=== PATIENT | male | born 1935 | race Caucasian/White ===

== ENCOUNTER → 2017-01-07 | Outpatient (CLI) | payer OTHER ==
[~2017-01-07] MED LIST: APIX5TAB PO; FLUTICASONE NAS; FUROSEMIDE 20 MG/2 ML ONE; LEVO125T5 PO; METO25TA91 PO; OXYC-302 PO; TAMS0.4C2 PO
== END | disposition home or self-care (01) ==
LOC: PETCFH 13:20
PROVIDERS: ATTEND Urology
DX: C67.9 Malignant neoplasm of bladder, unspecified (principal); C66.2 Malignant neoplasm of left ureter; N28.1 Cyst of kidney, acquired; R31.0 Gross hematuria
CPT/HCPCS: 78708; A9562; J1940

== ENCOUNTER → 2017-02-04 | Outpatient (CLI) | payer OTHER ==
[~2017-02-04] MED LIST changes: -FUROSEMIDE 20 MG/2 ML ONE; +OMNIPAQUE 350 MG/ML, 100ML BOTTLE ONE
== END | disposition home or self-care (01) ==
LOC: CFH 08:30
PROVIDERS: ATTEND Urology
DX: C66.2 Malignant neoplasm of left ureter (principal); C67.9 Malignant neoplasm of bladder, unspecified; K76.0 Fatty (change of) liver, not elsewhere classified; N28.1 Cyst of kidney, acquired; Z90.5 Acquired absence of kidney
CPT/HCPCS: 74177; Q9967

== ENCOUNTER 2017-04-01 05:39 | Day surgery (SDC) | payer OTHER ==
[~2017-04-01] VITALS: Ht 185.4 cm; Wt 79.0 kg
[~2017-04-01 05:39] MED LIST changes: -OMNIPAQUE 350 MG/ML, 100ML BOTTLE ONE
[2017-04-01] MEDS ORDERED: LACTATED RINGERS 1,000 ML IV SCH (06:57)
[2017-04-01 06:58] VITALS: BP 120/73
[2017-04-01] MEDS ORDERED: OMEP-110 PO (07:07)
[2017-04-01] MEDS ORDERED: FLUT16SP NAS (07:07)
[2017-04-01] MEDS ORDERED: CIPROFLOXACIN/PMX 400MG/200ML 200 ML ONE (07:24)
[2017-04-01] MEDS ORDERED: PROPOFOL 10 MG/ML, 20ML ONE (07:25)
[2017-04-01] MEDS ORDERED: ONDANSETRON 2MG/ML, 2ML ONE (07:25)
[2017-04-01] MEDS ORDERED: FENTANYL PF 100 MCG/2ML ONE (07:41)
[2017-04-01] MEDS ORDERED: FENTANYL PF 100 MCG/2ML IV PRN (08:00)
[2017-04-01] MEDS ORDERED: ACETAMINOPHEN 325 MG TABLET PO PRN (08:00)
[2017-04-01] MEDS ORDERED: ONDANSETRON 2MG/ML, 2ML IVPush PRN (08:00)
[2017-04-01] MEDS ORDERED: OXYcodone 5 MG/5 ML ORAL.SOL UDC PO PRN (08:00)
[2017-04-01] MEDS ORDERED: HYDROmorphone 1 MG/ML, 1ML IV PRN (08:00)
[2017-04-01] MEDS ORDERED: OXYcodone/APAP 5/325MG TABLET PO PRN (08:30)
== END 2017-04-01 10:35 | disposition home or self-care (01) ==
LOC: OUT 05:39
PROVIDERS: ATTEND Urology
DX: C67.9 Malignant neoplasm of bladder, unspecified (principal); E03.9 Hypothyroidism, unspecified; E11.9 Type 2 diabetes mellitus without complications; N40.0 Benign prostatic hyperplasia without lower urinary tract symptoms; M19.90 Unspecified osteoarthritis, unspecified site; Z87.891 Personal history of nicotine dependence; Z72.89 Other problems related to lifestyle; Z90.49 Acquired absence of other specified parts of digestive tract; Z98.890 Other specified postprocedural states; Z83.3 Family history of diabetes mellitus
CPT/HCPCS: 52234; 81001; 87077; 87086; 88307; 93005; J0744; J2405; J2704; J3010; J7120; 87186

== ENCOUNTER 2017-08-13 05:52 | Day surgery (SDC) | payer OTHER ==
[~2017-08-13] VITALS: Ht 185.4 cm; Wt 76.3 kg
[~2017-08-13 05:52] MED LIST changes: +FLUT16SP NAS; +OMEP-110 PO
[2017-08-13 06:36] VITALS: BP 136/77
[2017-08-13] MEDS ORDERED: SODIUM CHLORIDE 0.9% 1,000 ML IV SCH (06:38)
[2017-08-13] MEDS ORDERED: MULT-6 PO (06:58)
[2017-08-13] MEDS ORDERED: LIDOCAINE 1%, 20ML ONE (07:40)
[2017-08-13] MEDS ORDERED: FLUMAZENIL 0.1 MG/1 ML, 5ML ONE (07:58)
[2017-08-13] MEDS ORDERED: MIDAZOLAM 1 MG/ML, 5ML ONE ×2 (07:58)
[2017-08-13] MEDS ORDERED: NALOXONE 1 MG/ML, 2ML ONE (07:58)
[2017-08-13] MEDS ORDERED: FENTANYL PF 100 MCG/2ML ONE (07:58)
[2017-08-13] MEDS ORDERED: VISIPAQUE 270 MG/ML, 50ML BOTTLE ONE (08:00)
[2017-08-13] MEDS ORDERED: CIPROFLOXACIN/PMX 400MG/200ML 200 ML IVPB ONE (08:30)
== END 2017-08-13 10:35 ==
LOC: OUT 05:52
PROVIDERS: ATTEND Urology
DX: C65.2 Malignant neoplasm of left renal pelvis (principal); C67.9 Malignant neoplasm of bladder, unspecified; Z90.5 Acquired absence of kidney; Z93.6 Other artificial openings of urinary tract status
CPT/HCPCS: 50693; 50694; 74176; 76942; 99156; 99157; C1751; C1769; C1894; C2625; J2250; J3010; J3490; Q9966; J2310

== ENCOUNTER 2017-10-29 13:53 | Day surgery (SDC) | payer OTHER ==
[~2017-10-29] VITALS: Ht 185.4 cm; Wt 79.3 kg
[~2017-10-29 13:53] MED LIST changes: +MULT-6 PO
[2017-10-29] MEDS ORDERED: LACTATED RINGERS 1,000 ML IV SCH (14:32)
[2017-10-29] MEDS ORDERED: DONE5TAB14 PO (14:37)
[2017-10-29] MEDS ORDERED: FISH OIL PO (14:37)
[2017-10-29] MEDS ORDERED: VITAMIN B 12 PO (14:37)
[2017-10-29 14:46] VITALS: BP 91/62
[2017-10-29] MEDS ORDERED: LIDOCAINE 1%, 2ML SQ PRN (15:00)
[2017-10-29] MEDS ORDERED: ASPI-191 PO (15:03)
[2017-10-29] MEDS ORDERED: FENTANYL PF 100 MCG/2ML ONE ×2 (15:42)
[2017-10-29] MEDS ORDERED: MIDAZOLAM 1 MG/ML, 2ML ONE (15:42)
[2017-10-29] MEDS ORDERED: PROPOFOL 10 MG/ML, 20ML ONE (16:20)
[2017-10-29] MEDS ORDERED: EPHEDRINE 50 MG/ML, 1ML ONE (16:20)
[2017-10-29] MEDS ORDERED: ONDANSETRON 2MG/ML, 2ML ONE (16:20)
[2017-10-29] MEDS ORDERED: DEXAMETHASONE 4 MG/ML, 1ML ONE (16:20)
[2017-10-29] MEDS ORDERED: MITOMYCIN 40 MG, WATER FOR INJECTION,STERILE 40 ML in SYRINGE 1 EA INTVESIC ONE (16:30)
[2017-10-29] MEDS ORDERED: CIPROFLOXACIN/PMX 400MG/200ML 200 ML ONE (16:40)
[2017-10-29] MEDS ORDERED: ONDANSETRON 2MG/ML, 2ML IV PRN (18:00)
[2017-10-29] MEDS ORDERED: OXYcodone/APAP 5/325MG TABLET PO PRN (18:00)
[2017-10-29] MEDS ORDERED: ONDANSETRON 2MG/ML, 2ML IVPush PRN (18:30)
[2017-10-29] MEDS ORDERED: EPHEDRINE 50 MG/ML, 1ML IVPush PRN (18:30)
[2017-10-29] MEDS ORDERED: HYDROcodone/APAP 7.5-325MG/15ML UDC PO PRN (18:30)
[2017-10-29] MEDS ORDERED: LABETALOL 5MG/ML, 20ML IV PRN (18:30)
[2017-10-29] MEDS ORDERED: ACETAMINOPHEN 325 MG TABLET PO PRN (18:30)
[2017-10-29] MEDS ORDERED: HYDROmorphone 1 MG/ML, 1ML IV PRN (18:30)
[2017-10-29] MEDS ORDERED: PROMETHAZINE 25 MG/ML, 1ML IV PRN (18:30)
[2017-10-29] MEDS ORDERED: hydrALAzine 20 MG/ML, 1ML IV PRN (18:30)
[2017-10-29] MEDS ORDERED: OXYcodone 5 MG/5 ML ORAL.SOL UDC PO PRN (18:30)
[2017-10-29] MEDS ORDERED: ALBUTEROL SULFATE 2.5 MG/3 ML NPPB PRN (18:30)
[2017-10-29] MEDS ORDERED: METOPROLOL 1 MG/ML, 5ML IV PRN (18:30)
[2017-10-29] MEDS ORDERED: FENTANYL PF 100 MCG/2ML IV PRN (18:30)
[2017-10-29] MEDS ORDERED: ACETAMINOPHEN 650 MG/20.3 ML UDC ONE (18:44)
[2017-10-29 19:45] VITALS: BP 154/77
== END 2017-10-29 22:10 | disposition home or self-care (01) ==
LOC: OR 13:53 → 4NOR 19:30 → OR 22:10
PROVIDERS: ATTEND Urology
DX: C67.9 Malignant neoplasm of bladder, unspecified (principal); I48.91 Unspecified atrial fibrillation; K21.9 Gastro-esophageal reflux disease without esophagitis; Z90.5 Acquired absence of kidney; Z85.51 Personal history of malignant neoplasm of bladder; Z79.899 Other long term (current) drug therapy; Z72.89 Other problems related to lifestyle; Z87.891 Personal history of nicotine dependence; Z90.49 Acquired absence of other specified parts of digestive tract; E11.9 Type 2 diabetes mellitus without complications; M19.90 Unspecified osteoarthritis, unspecified site; N40.1 Benign prostatic hyperplasia with lower urinary tract symptoms; N13.8 Other obstructive and reflux uropathy
CPT/HCPCS: 51720; 52235; 88307; 93005; J0744; J1100; J2250; J2405; J2704; J3010

== ENCOUNTER 2017-11-25 06:16 | Day surgery (SDC) | payer OTHER ==
[~2017-11-25] VITALS: Ht 182.9 cm; Wt 74.8 kg
[~2017-11-25 06:16] MED LIST changes: +ASPI-191 PO; +DONE5TAB14 PO; +ERGO500017 PO; +FISH OIL PO; +LEVO150T PO; +VITAMIN B 12 PO
[2017-11-25] MEDS ORDERED: CIPROFLOXACIN/PMX 400MG/200ML 200 ML IV ONE (07:00)
[2017-11-25 07:04] VITALS: BP 136/84
[2017-11-25] MEDS ORDERED: SODIUM CHLORIDE 0.9% 1,000 ML IV SCH (07:41)
[2017-11-25] MEDS ORDERED: LIDOCAINE 1%, 20ML ONE ×2 (08:03→08:08)
[2017-11-25] MEDS ORDERED: FENTANYL PF 100 MCG/2ML ONE (08:14)
[2017-11-25] MEDS ORDERED: MIDAZOLAM 1 MG/ML, 2ML ONE ×2 (08:14)
[2017-11-25] MEDS ORDERED: VISIPAQUE 270 MG/ML, 50ML BOTTLE ONE (09:57)
== END 2017-11-25 11:30 ==
LOC: OUT 06:16
PROVIDERS: ATTEND Urology
DX: N13.1 Hydronephrosis with ureteral stricture, not elsewhere classified (principal); Z98.890 Other specified postprocedural states; Z87.891 Personal history of nicotine dependence; Z85.51 Personal history of malignant neoplasm of bladder
CPT/HCPCS: 50693; 99156; 99157; C1769; C2625; J0744; J2250; J3010; J3490; J7030; Q9966

== ENCOUNTER 2017-12-14 06:01 | Inpatient (IN) | payer OTHER ==
[~2017-12-14] VITALS: Ht 182.9 cm; Wt 79.5 kg
[2017-12-14 06:34] LABS: BASOPHILS # (AUTO) 0.02 x10^3/uL (0-0.1); BASOPHILS % (AUTO) 0 % (0-1); EOSINOPHILS # (AUTO) 0.06 x10^3/uL (0-0.4); EOSINOPHILS % (AUTO) 0 % (1-7); LYMPHOCYTES # (AUTO) 1.67 x10^3/uL (1-3.4); LYMPHOCYTES % (AUTO) 11 % (22-44); MD NO; MEAN CORPUSCULAR HEMOGLOBIN 33.1 pg (27.5-34.5); MEAN CORPUSCULAR VOLUME 97.4 fL (81-97); MEAN PLATELET VOLUME 6.7 fL (7.4-10.4); MONOCYTES # (AUTO) 1.12 x10^3/uL (0.2-0.8); MONOCYTES % (AUTO) 7 % (2-9); NEUTROPHILS # (AUTO) 12.46 x10^3/uL (1.8-6.8); NEUTROPHILS % (AUTO) 81 % (42-75); PLATELET COUNT 302 x10^3/uL (130-400); RED BLOOD COUNT 3.82 x10^6/uL (4.38-5.82); RED CELL DISTRIBUTION WIDTH 13.8 % (9.4-14.8)
[2017-12-14 06:42] LABS: ALANINE AMINOTRANSFERASE 15 U/L (12-78); ALBUMIN 3.1 g/dL (3.4-5.0); ANION GAP 10 mmol/L (5-15); CALCIUM 8.3 mg/dL (8.5-10.1); CHLORIDE 105 mmol/L (98-107); CREATININE 6.51 mg/dL (0.7-1.3)
[2017-12-14] MEDS ORDERED: FENTANYL PF 100 MCG/2ML ONE (06:43)
[2017-12-14 06:44] LABS: ALKALINE PHOSPHATASE 54 U/L (45-117); BILIRUBIN,TOTAL 0.6 mg/dL (0.2-1.0); TOTAL PROTEIN 6.8 g/dL (6.4-8.2)
[2017-12-14] MEDS ORDERED: CEFTRIAXONE 1,000 MG ONE (07:02)
[2017-12-14] MEDS ORDERED: PHENYLEPHRINE 10 MG/ML ONE (07:03)
[2017-12-14] MEDS ORDERED: PROPOFOL 10 MG/ML, 20ML ONE ×2 (07:36)
[2017-12-14] MEDS ORDERED: NEOSTIGMINE 1 MG/ML, 10ML ONE (07:36)
[2017-12-14] MEDS ORDERED: LIDOCAINE 4%, 4 ML SYR/CANN TP ONE (07:36)
[2017-12-14] MEDS ORDERED: CEFAZOLIN 1,000 MG ONE (07:36)
[2017-12-14] MEDS ORDERED: SUCCINYLCHOLINE 20 MG/ML, 10ML ONE (07:36)
[2017-12-14] MEDS ORDERED: ONDANSETRON 2MG/ML, 2ML ONE (07:36)
[2017-12-14] MEDS ORDERED: DEXAMETHASONE 4 MG/ML, 1ML ONE (07:36)
[2017-12-14] MEDS ORDERED: GLYCOPYRROLATE 0.2MG/1ML, 5ML ONE (07:36)
[2017-12-14] MEDS ORDERED: ROCURONIUM 10 MG/ML,10ML ONE (07:36)
[2017-12-14] MEDS ORDERED: ACETAMINOPHEN 325 MG TABLET PO PRN (08:30)
[2017-12-14] MEDS ORDERED: OXYcodone/APAP 5/325MG TABLET PO PRN (08:30)
[2017-12-14] MEDS ORDERED: FENTANYL PF 100 MCG/2ML IV PRN (08:30)
[2017-12-14] MEDS ORDERED: OXYcodone 5 MG/5 ML ORAL.SOL UDC PO PRN (08:30)
[2017-12-14] MEDS ORDERED: ONDANSETRON 2MG/ML, 2ML IVPush PRN ×2 (08:30)
[2017-12-14] MEDS ORDERED: EPHEDRINE 50 MG/ML, 1ML IVPush PRN (08:30)
[2017-12-14] MEDS ORDERED: HYDROmorphone 1 MG/ML, 1ML IV PRN (08:30)
[2017-12-14] MEDS ORDERED: HYDROcodone/APAP 7.5-325MG/15ML UDC PO PRN (08:30)
[2017-12-14] MEDS: CYANOCOBALAMIN 1,000 MCG TABLET PO SCH (11:29)
[2017-12-14] MEDS: FLUTICASONE NASAL SPRAY 16GM NAS SCH (11:30)
[2017-12-14] MEDS: OMEPRAZOLE 20 MG CAPSULE.DR PO SCH (11:30)
[2017-12-14] MEDS: MULTIVITAMIN 1 TABLET PO SCH (11:30)
[2017-12-14] MEDS: POTASSIUM CHLORIDE 20 MEQ in D5%-0.45% NACL 1,000 ML IV SCH ×2 (11:30→20:55)
[2017-12-14] MEDS ORDERED: LEVOTHYROXINE 150 MCG TABLET PO SCH (11:30)
[2017-12-14 12:49] VITALS: BP 92/52
[2017-12-14 19:27] VITALS: BP 97/59
[2017-12-14] MEDS: DONEPEZIL 5 MG TABLET PO SCH (20:47)
[2017-12-14] MEDS: TAMSULOSIN 0.4 MG CAP.ER.24H PO SCH (20:47)
[2017-12-15 00:46] VITALS: BP 105/53
[2017-12-15 05:14] LABS: ANION GAP 9 mmol/L (5-15); CALCIUM 7.7 mg/dL (8.5-10.1); CHLORIDE 107 mmol/L (98-107); CREATININE 5.05 mg/dL (0.7-1.3)
[2017-12-15] MEDS ORDERED: LEVOTHYROXINE 25 MCG TABLET ONE ×2 (05:59→06:00)
[2017-12-15] MEDS ORDERED: LEVOTHYROXINE 125 MCG TABLET ONE (05:59)
[2017-12-15] MEDS: LEVOTHYROXINE 150 MCG TABLET PO SCH (06:00)
[2017-12-15] MEDS: POTASSIUM CHLORIDE 20 MEQ in D5%-0.45% NACL 1,000 ML IV SCH ×2 (06:06→16:42)
[2017-12-15 08:10] VITALS: BP 91/44
[2017-12-15] MEDS: CYANOCOBALAMIN 1,000 MCG TABLET PO SCH (08:17)
[2017-12-15] MEDS: OMEPRAZOLE 20 MG CAPSULE.DR PO SCH (08:17)
[2017-12-15] MEDS: MULTIVITAMIN 1 TABLET PO SCH (08:17)
[2017-12-15] MEDS: FLUTICASONE NASAL SPRAY 16GM NAS SCH (08:17)
[2017-12-15] MEDS: CEFTRIAXONE 1,000 MG in SODIUM CHLORIDE 0.9% 50 ML IV SCH (08:18)
[2017-12-15] MEDS ORDERED: CEFTRIAXONE PMX 1GM/50ML 50 ML IV SCH (08:30)
[2017-12-15 13:55] VITALS: BP 93/53
[2017-12-15 19:24] VITALS: BP 112/66
[2017-12-15] MEDS: TAMSULOSIN 0.4 MG CAP.ER.24H PO SCH (21:29)
[2017-12-15] MEDS: DONEPEZIL 5 MG TABLET PO SCH (21:29)
[2017-12-16] MEDS: POTASSIUM CHLORIDE 20 MEQ in D5%-0.45% NACL 1,000 ML IV SCH (00:24)
[2017-12-16 02:50] VITALS: BP 134/70
[2017-12-16 05:20] LABS: ANION GAP 7 mmol/L (5-15); CALCIUM 8.3 mg/dL (8.5-10.1); CHLORIDE 111 mmol/L (98-107); CREATININE 3.21 mg/dL (0.7-1.3)
[2017-12-16] MEDS ORDERED: LEVOTHYROXINE 75 MCG TABLET ONE (05:46)
[2017-12-16] MEDS: LEVOTHYROXINE 150 MCG TABLET PO SCH (05:58)
[2017-12-16 07:10] VITALS: BP 127/72
[2017-12-16] MEDS: OMEPRAZOLE 20 MG CAPSULE.DR PO SCH (08:18)
[2017-12-16] MEDS: FLUTICASONE NASAL SPRAY 16GM NAS SCH (08:18)
[2017-12-16] MEDS: CYANOCOBALAMIN 1,000 MCG TABLET PO SCH (08:18)
[2017-12-16] MEDS: MULTIVITAMIN 1 TABLET PO SCH (08:18)
[2017-12-16] MEDS: CEFTRIAXONE 1,000 MG in SODIUM CHLORIDE 0.9% 50 ML IV SCH (08:18)
[2017-12-16 14:02] VITALS: BP 108/67
== END 2017-12-16 14:50 | disposition home or self-care (01) | DRG 694 ==
LOC: OR 06:01 → 4NOR 06:02 → OR 08:09 → DCLOUNGE 12-16 14:40
PROVIDERS: ADMIT Urology; ATTEND Urology
PROC: 0T768DZ Dilation of Right Ureter with Intraluminal Device, Via Natural or Artificial Opening Endoscopic (ICD-10-PCS; principal; 2017-12-15)
DX: N13.2 Hydronephrosis with renal and ureteral calculous obstruction (principal); F03.90 Unspecified dementia, unspecified severity, without behavioral disturbance, psychotic disturbance, mood disturbance, and anxiety; E03.9 Hypothyroidism, unspecified; N18.9 Chronic kidney disease, unspecified; Z85.51 Personal history of malignant neoplasm of bladder; N40.0 Benign prostatic hyperplasia without lower urinary tract symptoms; Z87.891 Personal history of nicotine dependence
CPT/HCPCS: 36415; 74420; 80048; 80053; 85018; 85025; J0690; J0696; J1100; J2405; J2704; J2710; J3010; J3480; J3490; C2617; J0330; J2370